=== PATIENT | male | born 1980 | race Two or more races ===

== ENCOUNTER 2016-09-23 08:36 | Emergency (ER) | payer SELFPAY ==
[~2016-09-23] VITALS: Ht 175.3 cm; Wt 96.6 kg
[~2016-09-23 08:36] MED LIST: CIPR-173 PO; IBUP400T21 PO; TAM04C PO
[2016-09-23 09:06] VITALS: BP 133/80
== END 2016-09-23 10:55 | disposition home or self-care (01) ==
LOC: ER 08:45
DX: M72.2 Plantar fascial fibromatosis (principal); M21.42 Flat foot [pes planus] (acquired), left foot; M21.41 Flat foot [pes planus] (acquired), right foot

== ENCOUNTER 2021-03-01 08:30 | Emergency (ER) | payer BC, MEDICAID ==
[~2021-03-01] VITALS: Ht 175.3 cm; Wt 91.2 kg
[~2021-03-01 08:30] MED LIST changes: -IBUP400T21 PO; +IBUP400T22 PO
[2021-03-01 08:37] VITALS: BP 130/88
== END 2021-03-01 09:33 | disposition home or self-care (01) ==
LOC: ER 08:30
DX: M23.91 Unspecified internal derangement of right knee (principal); M65.242 Calcific tendinitis, left hand

== ENCOUNTER 2023-04-20 17:52 | Inpatient (IN) | payer BC, MEDICAID ==
[~2023-04-20] VITALS: Ht 175.3 cm; Wt 99.4 kg
[~2023-04-20 17:52] MED LIST changes: +IBUP-1453 PO; -IBUP400T22 PO; -TAM04C PO; +TAMS-35 PO
[2023-04-20] MEDS ORDERED: KETOROLAC TROMETH 30 MG/ML 1ML VIAL IV ONE (18:30)
[2023-04-20] MEDS ORDERED: SODIUM CHLORIDE 0.9% 1,000 ML IV ONE (18:30)
[2023-04-20 19:01] LABS: Basophils # (auto) 0.1 10 ^3/uL (0-0.2); Basophils % (auto) 0.6 % (0.0-2.0); Eosinophils # (auto) 0.2 10 ^3/uL (0-0.8); Eosinophils % (auto) 1.8 % (0.0-7.0); Hematocrit 46.1 % (41.0-53.0); Hemoglobin 15.4 g/dL (13.5-17.5); Lymphocytes # (auto) 2.1 10 ^3/uL (0.4-5.4); Lymphocytes % (auto) 20.7 % (10.0-50.0); Mean Corpuscular Hemoglobin 30.2 pg (28.0-32.0); Mean Corpuscular Hgb Conc. 33.4 g/dL (32.0-36.0); Mean Corpuscular Volume 90.4 fL (80.0-100.0); Monocytes # (auto) 1.1 10 ^3/uL (0-1.3); Monocytes % (auto) 11.4 % (0.0-12.0); Neutrophils # (auto) 6.5 10 ^3/uL (1.6-8.6); Neutrophils % (auto) 65.5 % (37.0-80.0); Nucleated Red Blood Cells % 0.1 %; Red Cell Distribution Width 14.3 % (11.8-14.3); White Blood Cell 9.9 10^3/uL (4.4-10.8)
[2023-04-20 19:07] LABS: Urine Bacteria NONE SEEN /hpf (None Seen); Urine Blood Negative /uL (Negative); Urine Clarity Clear (Clear); Urine Color Colorless (Yellow); Urine Protein, UAD Negative (Negative); Urine Specific Gravity 1.011 (1.001-1.035); Urine Urobilinogen Normal (Negative); Urine WBC 1 /hpf (0 - 3)
[2023-04-20] MEDS ORDERED: ONDANSETRON HCL 4 MG/2 ML VIAL IV ONE (19:15)
[2023-04-20 19:16] LABS: Calcium 9.5 mg/dL (8.5-10.1); Potassium 4.7 mmol/L (3.5-5.1)
[2023-04-20 19:19] LABS: Alcohol, Urine < 3.0 mg/dL (0-10); Amphetamine Screen, Urine NEGATIVE (NEGATIVE); Barbiturate Scree,Urine NEGATIVE (NEGATIVE); Benzodiazephine Screen, Urine NEGATIVE (NEGATIVE); Cannabinoid Screen, Urine NEGATIVE (NEGATIVE); Cocaine Screen, Urine NEGATIVE (NEGATIVE)
[2023-04-20 19:23] LABS: BUN/Creatinine Ratio 13.7 (10.0-20.0); Bilirubin, Total 0.6 mg/dL (0.2-1.0)
[2023-04-20 20:06] LABS: Opiate Scree,Urine NEGATIVE (NEGATIVE); Phencyclidine Screen, Urine NEGATIVE (NEGATIVE)
[2023-04-20] MEDS ORDERED: ACETAMINOPHEN 325 MG TAB PO PRN (20:45)
[2023-04-20] MEDS: cefTRIAXone 1GM/50ML D5W 50 ML IV SCH (21:07)
[2023-04-20] MEDS ORDERED: TEMAZEPAM 15 MG CAP PO PRN (22:00)
[2023-04-21 02:46] VITALS: PULSE 75; RESP 20; O2SAT 93
[2023-04-21] MEDS: ONDANSETRON HCL 4 MG/2 ML VIAL IV PRN ×2 (05:02→09:56)
[2023-04-21] MEDS: MORPHINE SULFATE INJ 2 MG/ml SYRG IV PRN ×3 (05:04→21:10)
[2023-04-21 05:45] LABS: Basophils # (auto) 0.1 10 ^3/uL (0-0.2); Basophils % (auto) 0.8 % (0.0-2.0); Eosinophils # (auto) 0.2 10 ^3/uL (0-0.8); Eosinophils % (auto) 2.4 % (0.0-7.0); Hematocrit 42.9 % (41.0-53.0); Hemoglobin 14.2 g/dL (13.5-17.5); Lymphocytes # (auto) 2.2 10 ^3/uL (0.4-5.4); Lymphocytes % (auto) 25.9 % (10.0-50.0); Mean Corpuscular Hemoglobin 30.1 pg (28.0-32.0); Mean Corpuscular Volume 91.1 fL (80.0-100.0); Monocytes % (auto) 12.6 % (0.0-12.0); Neutrophils # (auto) 4.8 10 ^3/uL (1.6-8.6); Neutrophils % (auto) 58.3 % (37.0-80.0); Nucleated Red Blood Cells % 0.1 %; Red Cell Distribution Width 14.1 % (11.8-14.3); White Blood Cell 8.3 10^3/uL (4.4-10.8)
[2023-04-21 06:02] LABS: Potassium 4.8 mmol/L (3.5-5.1)
[2023-04-21 06:13] LABS: Albumin 3.3 g/dL (3.4-5.0); Bilirubin, Total 0.7 mg/dL (0.2-1.0); Calcium 8.8 mg/dL (8.5-10.1); Total Protein 7.5 g/dL (6.4-8.2)
[2023-04-21] MEDS: HYDROcodone-ACET 5/325MG TAB PO PRN (06:57)
[2023-04-21 07:54] VITALS: PULSE 64; RESP 18; O2SAT 95
[2023-04-21] MEDS: cefTRIAXone 1GM/50ML D5W 50 ML IV SCH (09:48)
[2023-04-21] MEDS: PANTOPRAZOLE 40 MG/10 ML VIAL INJ IV SCH (10:15)
[2023-04-21 23:05] VITALS: BP 139/84; PULSE 84; RESP 18; TEMP 99.8
[2023-04-22] MEDS: HYDROcodone-ACET 5/325MG TAB PO PRN ×2 (00:20→11:09)
[2023-04-22 05:00] VITALS: BP 120/69; PULSE 90; RESP 18; TEMP 98.9; O2SAT 97
[2023-04-22 08:00] VITALS: RESP 16; O2SAT 98
[2023-04-22] MEDS ORDERED: MANNITOL FTV 25% 12.5 GM/50 ML 50 ML IV ONE (08:00)
[2023-04-22] MEDS: cefTRIAXone 1GM/50ML D5W 50 ML IV SCH (08:20)
[2023-04-22] MEDS: PANTOPRAZOLE 40 MG/10 ML VIAL INJ IV SCH (08:45)
[2023-04-22] MEDS ORDERED: HYDR-4902 PO (09:00)
[2023-04-22] MEDS ORDERED: MULT1TAB95 PO (09:00)
[2023-04-22] MEDS ORDERED: TAMS-35 PO (09:00)
[2023-04-22] MEDS ORDERED: CHL10C PO (09:00)
[2023-04-22 10:05] VITALS: BP 120/69; PULSE 90; RESP 18; TEMP 98.9; O2SAT 97
[2023-04-22 13:34] LABS: Hepatitis B Surface Antigen Negative (Negative)
[2023-04-22 13:49] LABS: Hepatitis C Antibody Negative (Negative)
== END 2023-04-22 12:22 | disposition home or self-care (01) | DRG 682 ==
LOC: ER 17:52 → OVERFLOW 20:37 → WEST WING 04-21 22:10
PROVIDERS: ADMIT Nurse Practitioner; ATTEND Hospitalist
DX: N17.9 Acute kidney failure, unspecified (principal); K85.90 Acute pancreatitis without necrosis or infection, unspecified; F10.20 Alcohol dependence, uncomplicated; Y90.9 Presence of alcohol in blood, level not specified; R79.89 Other specified abnormal findings of blood chemistry; N13.2 Hydronephrosis with renal and ureteral calculous obstruction; E86.0 Dehydration; Z82.49 Family history of ischemic heart disease and other diseases of the circulatory system; Z87.442 Personal history of urinary calculi
CPT/HCPCS: 36415; 74176; 76705; 80053; 80307; 81001; 83690; 85025; 86803; 87340; C9113; G0378; J0696; J1885; J2405